=== PATIENT | male | born 1975 | race Caucasian/White ===

== ENCOUNTER 2016-09-04 15:00 | Emergency (ER) | payer BC ==
[2016-09-04 15:17] VITALS: BP 138/94
--- NOTE | 2016-09-04 15:30 | UC ---
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 the pain denies fever but has been sweating and having xchills some discomfort with urintaiotn but no pain, increase in frequecncy over the alst 2 months denies N/V/D/C, last BM today- no blood in stool denies back pain hx of kidney stones told come in and get evaluaiton - History of Current Complaint Chief Complaint: UCAbdominalPain Stated Complaint: ABD PAIN/PRESSURE Time Seen by Provider: 09/04/16 15:22 - Allergies/Home Medications Allergies/Adverse Reactions: Allergies Allergy/AdvReac Type Severity Reaction Status Date / Time No Known Allergies Allergy Verified 10/31/13 08:31 Home Medications: Home Medications NK [No Home Medications Reported] 09/04/16 [History Confirmed 09/04/16] PMH/Surg Hx/FS Hx/Imm Hx Previously Healthy: Yes GI/ History: Kidney Stones - Surgical History Surgical History: None - Family History Known Family History: Negative: Cardiac Disease, Hypertension, Diabetes - Social History Occupation: Employed Full-time Lives: With Family Alcohol Use: Daily Alcohol Amount: 1-2 beer Substance Use Type: None Smoking Status (MU): Heavy Every Day Tobacco Smoker Type: Cigarettes Amount Used/How Often: 1 pack per week and 1 can per day Length of Time of Smoking/Using Tobacco: started at age 18 Have You Smoked in the Last Year: Yes Cessation Counseling: Patient Advised to Stop Review of Systems Constitutional: Chills Skin: Negative Eyes: Negative ENT: Negative Respiratory: Negative Cardiovascular: Negative Gastrointestinal: Abdominal Pain Genitourinary: Dysuria Motor: Negative Neurovascular: Negative Musculoskeletal: Negative Neurological: Negative Psychological: Negative All Other Systems Reviewed And Are Negative: Yes Physical Exam Triage Information Reviewed: Yes Appearance: Well-Nourished, Pain Distress Vital Signs: Initial Vital Signs Temp 97.7 F 09/04/16 15:09 Pulse 78 09/04/16 15:09 Resp 16 09/04/16 15:09 BP 138/94 09/04/16 15:09 Pulse Ox 99 09/04/16 15:09 Vital Signs Reviewed: Yes Eyes: Positive: Conjunctiva Clear ENT: Positive: Pharynx normal, TMs normal Neck: Positive: No Lymphadenopathy Respiratory: Positive: Lungs clear, Normal breath sounds, No respiratory distress, No accessory muscle use Cardiovascular: Positive: RRR, No Murmur, Pulses Normal Abdomen Description: Positive: No Organomegaly. Negative: CVA Tenderness (R), CVA Tenderness (L) Complaint Male Course/Dx - Course Course Of Treatment: exam completed. pt with RLQ pain and rebound tederness, guarding and distention. d/t severity and acute nature of abdominal pain will send to higher level of care for evaluation - Differential Dx/Diagnosis Differential Diagnosis/HQI/PQRI: Urinary Tract Infection, Other - appendicitis, kidney stones Provider Diagnoses: RLQ pain - Physician Notifications Discussed Patient Care With: Silva Ritchie Discussed With Above Provider: 15:46 Instructed by Provider To: Will See In ED Discharge - Discharge Plan Condition: Stable Disposition: TRANS HIGHER LVL OF CARE FAC
== END 2016-09-04 15:49 | disposition left against medical advice (07) ==
LOC: UCCORT 15:00
DX: R10.31 Right lower quadrant pain (principal); Z87.442 Personal history of urinary calculi; F17.210 Nicotine dependence, cigarettes, uncomplicated
CPT/HCPCS: 81003; 99212; G0463

== ENCOUNTER 2016-11-06 08:45 | Emergency (ER) | payer BC ==
[2016-11-06 09:26] VITALS: BP 140/102
--- NOTE | 2016-11-06 10:29 | UC ---
General HPI - HPI Summary HPI Summary: TWO DAYS OF VOMITING (X3) AND DIARRHEA. NO ABDOMINAL PAIN. ABLE TO DRINK FLUIDS. CHILDREN HAD SIMILAR ILLNESS LAST WEEK. NO FEVER. NO RASHES. NO HEADACHE. NO SORE THROAT. - History of Current Complaint Chief Complaint: UCGI Stated Complaint: VOMITING Time Seen by Provider: 11/06/16 09:59 Hx Obtained From: Patient Onset/Duration: Gradual Onset, Lasting Days, Still Present Onset Severity: Moderate Current Severity: Mild Associated Signs & Symptoms: Positive: Diarrhea, Nausea, Vomiting. Negative: Abdominal Pain, Back Pain, Cough, Chest Pain, Diaphoresis, Edema, Fever, Headache, Palpitations, Recent Medication Changes, Syncope, SOB, Weakness - Allergy/Home Medications Allergies/Adverse Reactions: Allergies Allergy/AdvReac Type Severity Reaction Status Date / Time No Known Allergies Allergy Verified 11/06/16 09:26 Home Medications: Home Medications Peptoo Bismol 1 dose PO ONCE PRN 11/06/16 [History Confirmed 11/06/16] Protein Shake 1 unit PO DAILY 11/06/16 [History Confirmed 11/06/16] PMH/Surg Hx/FS Hx/Imm Hx Previously Healthy: Yes - Surgical History Surgical History: None - Family History Known Family History: Negative: Cardiac Disease, Hypertension, Diabetes - Social History Occupation: Employed Full-time Lives: With Family Alcohol Use: Occasionally Alcohol Amount: 1-2 beer Substance Use Type: None Smoking Status (MU): Former Smoker Type: Cigarettes Amount Used/How Often: 1 pack per week and 1 can per day Length of Time of Smoking/Using Tobacco: started at age 18 Have You Smoked in the Last Year: Yes When Did the Patient Quit Smoking/Using Tobacco: 3 weeks Review of Systems Constitutional: Negative Skin: Negative Eyes: Negative ENT: Negative Respiratory: Negative Cardiovascular: Negative Gastrointestinal: Vomiting, Diarrhea Genitourinary: Negative Motor: Negative Neurovascular: Negative Musculoskeletal: Negative Neurological: Negative Psychological: Negative All Other Systems Reviewed And Are Negative: Yes Physical Exam Triage Information Reviewed: Yes Appearance: No Pain Distress, Well-Nourished, Ill-Appearing - MILDLY Vital Signs: Initial Vital Signs Temp 98.3 F 11/06/16 09:18 Pulse 72 11/06/16 09:18 Resp 18 11/06/16 09:18 BP 140/102 11/06/16 09:18 Vital Signs Reviewed: Yes Eye Exam: Normal ENT Exam: Normal ENT: Positive: Normal ENT inspection, Hearing grossly normal, Pharynx normal, TMs normal Dental Exam: Normal Neck exam: Normal Neck: Positive: Supple, Nontender, No Lymphadenopathy Respiratory Exam: Normal Respiratory: Positive: Chest non-tender, Lungs clear, Normal breath sounds, No respiratory distress, No accessory muscle use Cardiovascular Exam: Normal Cardiovascular: Positive: RRR, No Murmur, Pulses Normal, Brisk Capillary Refill Abdominal Exam: Normal Abdomen Description: Positive: Nontender, No Organomegaly Musculoskeletal Exam: Normal Neurological Exam: Normal Psychological Exam: Normal Psychological: Positive: Normal Response To Family Skin Exam: Normal Course/Dx - Differential Dx - Multi-Symptom Differential Diagnoses: Metabolic Abnormality, Urinary Tract Infection Provider Diagnoses: GASTROENTERITIS Discharge - Discharge Plan Condition: Stable Disposition: HOME Prescriptions: Ondansetron ODT TAB* [Zofran 4 MG Odt TAB*] 4 mg PO Q8H PRN #9 tab.odt PRN Reason: Vomiting Patient Education Materials: Gastroenteritis (ED), Acute Nausea and Vomiting ( ED) Forms: *Work Release Referrals: [facility] [Outside] No Primary Care Phys,NOPCP [Primary Care Provider] -
== END 2016-11-06 10:20 | disposition home or self-care (01) ==
LOC: UCCORT 08:45
DX: K52.9 Noninfective gastroenteritis and colitis, unspecified (principal); Z87.891 Personal history of nicotine dependence
CPT/HCPCS: 99212; G0463

== ENCOUNTER 2016-12-12 08:38 | Emergency (ER) | payer BC ==
[2016-12-12 08:52] VITALS: BP 149/97
--- NOTE | 2016-12-12 09:23 | ED ---
Upper Extremity Pain - HPI Summary HPI Summary: 41 yr old male with the complaint of left hand pain. The patient has 1/10 pain in left hand, made worse with gripping things. the patient states he ended up getting stung by something three days ago when working in the [employer] [place]. He had gloves on. He denies fever or chills. He has some redness, and tenderness over the area. He denies any direct trauma to the hand otherwise. - History of Current Complaint Chief Complaint: UCSkin Stated Complaint: LEFT HAND COMPLAINT Time Seen by Provider: 12/12/16 08:48 - Allergies/Home Medications Allergies/Adverse Reactions: Allergies Allergy/AdvReac Type Severity Reaction Status Date / Time No Known Allergies Allergy Verified 12/12/16 08:46 Home Medications: Home Medications Diphenhydramine HCl [Benadryl Allergy Child 12.5 MG/5 ML LIQ] 12.5 mg PO TID PRN 12/12/16 [History Confirmed 12/12/16] PMH/Surg Hx/FS Hx/Imm Hx Previously Healthy: Yes Endocrine/Hematology History: Denies: Hx Diabetes Respiratory History: Denies: Hx Asthma - Surgical History Hx Anesthesia Reactions: No - Immunization History Immunizations Up to Date: Yes Infectious Disease History: No Infectious Disease History: Denies: Traveled Outside the [place] in Last 30 Days - Family History Known Family History: Positive: Other - cancer liver; his father last week. Negative: Cardiac Disease, Hypertension, Diabetes - Social History Alcohol Use: Occasionally Alcohol Amount: 1-2 beer Substance Use Type: Reports: None Smoking Status (MU): Former Smoker Type: Cigarettes Amount Used/How Often: 1 pack per week and 1 can per day Length of Time of Smoking/Using Tobacco: started at age 18 Have You Smoked in the Last Year: Yes Review of Systems Constitutional: Negative Positive: Other - hand pain, redness All Other Systems Reviewed And Are Negative: Yes Physical Exam Triage Information Reviewed: Yes Vital Signs On Initial Exam: Initial Vitals Temp Pulse Resp BP Pulse Ox 98.6 F 73 16 149/97 98 12/12/16 08:48 12/12/16 08:48 12/12/16 08:48 12/12/16 08:48 12/12/16 08:48 Vital Signs Reviewed: Yes Appearance: Positive: Well-Appearing, No Pain Distress Skin: Positive: Skin Color Reflects Adequate Perfusion Head/Face: Positive: Normal Head/Face Inspection Eyes: Positive: EOMI ENT: Positive: Normal ENT inspection Respiratory/Lung Sounds: Positive: Other - nomral effort Cardiovascular: Positive: Pulses are Symmetrical in both Upper and Lower Extremities - upper onlly Musculoskeletal: Positive: Other - left hand with redness and very minimal tenderness and soft tissue swelling to the dorsum in between the 4th and 5 th metacarpals. No fluctuance. no FB palpated. he opens and closes the left hand well. Neurological: Positive: Sensory/Motor Intact, Alert, Oriented to Person Place, Time, CN Intact II-III, Normal Gait Psychiatric: Positive: Normal - Juan Coma Scale Best Eye Response: 4 - Spontaneous Best Motor Response: 6 - Obeys Commands Best Verbal Response: 5 - Oriented Diagnostics - Vital Signs Vital Signs Temp Pulse Resp BP Pulse Ox 12/12/16 08:48 98.6 F 73 16 149/97 98 - Laboratory Lab Statement: Any lab studies that have been ordered have been reviewed, and results considered in the medical decision making process. Course/Dx - Course Course Of Treatment: 41 yr old with bug bit to hand by history with some cellulitis. Rx keflex. FU PMD - Diagnoses Provider Diagnoses: Cellulitis Discharge - Discharge Plan Condition: Good Disposition: HOME Prescriptions: Cephalexin CAP* [Keflex CAP*] 500 mg PO QID #40 cap Ibuprofen TAB* [Motrin TAB* 600 MG] 600 mg PO Q6H PRN #20 tab PRN Reason: Pain Patient Education Materials: Cellulitis (ED) Forms: *Work Release Referrals: Kevin Baker MD [Medical Doctor] - 4 Days No Primary Care Phys,NOPCP [Primary Care Provider] -
== END 2016-12-12 09:24 | disposition home or self-care (01) ==
LOC: UCCORT 08:38
DX: L03.114 Cellulitis of left upper limb (principal); Z87.891 Personal history of nicotine dependence
CPT/HCPCS: 99212; G0463

== ENCOUNTER 2017-03-20 08:26 | Emergency (ER) | payer BC ==
[2017-03-20 08:46] VITALS: BP 139/88
--- NOTE | 2017-03-20 08:50 | UC ---
Abdominal Pain Male HPI - HPI Summary HPI Summary: Pt vomited 5-6 times since 1am Pt states went to work and felt he should try to eat. Pt had a piece of breakfast pizza and coffee which he vomited. Pt here for work note as he was sent home. Pt denies fevers, chills, no cp, sob, abd pain. Pt denies diarrhea. Pt states feels thirsty. + urine x 1 today. Pt states his daughter was sick with "stomach bug" x 36 hours this week. She also developed diarrhea. Pt's medications reviewed this visit - History of Current Complaint Chief Complaint: UCGI Stated Complaint: VOMITING Time Seen by Provider: 03/20/17 08:37 Hx Obtained From: Patient Onset/Duration: Sudden Onset Timing: Constant Severity Initially: Mild Severity Currently: Mild Radiates: No Character: Other - nausea Aggravating Factor(s): Food Alleviating Factor(s): Nothing Associated Signs And Symptoms: Positive: Vomiting - Allergies/Home Medications Allergies/Adverse Reactions: Allergies Allergy/AdvReac Type Severity Reaction Status Date / Time No Known Allergies Allergy Verified 03/20/17 08:46 Home Medications: Home Medications NK [No Home Medications Reported] 03/20/17 [History Confirmed 03/20/17] PMH/Surg Hx/FS Hx/Imm Hx Previously Healthy: Yes - Surgical History Surgical History: None - Family History Known Family History: Positive: Other - cancer liver; his father last week. Negative: Cardiac Disease, Hypertension, Diabetes - Social History Occupation: Employed Full-time Lives: With Family Alcohol Use: Occasionally Alcohol Amount: 1-2 beer Substance Use Type: None Type: Smokeless Tobacco Amount Used/How Often: 1 can per day Length of Time of Smoking/Using Tobacco: started at age 18 Have You Smoked in the Last Year: Yes When Did the Patient Quit Smoking/Using Tobacco: couple months Review of Systems Constitutional: Negative Gastrointestinal: Vomiting, Nausea All Other Systems Reviewed And Are Negative: Yes Physical Exam Triage Information Reviewed: Yes Appearance: Well-Nourished, Other: - tired appearing Vital Signs: Initial Vital Signs Temp 98.1 F 03/20/17 08:40 Pulse 78 03/20/17 08:40 Resp 16 03/20/17 08:40 BP 139/88 03/20/17 08:40 Pulse Ox 99 03/20/17 08:40 Eye Exam: Normal Eyes: Positive: Conjunctiva Clear ENT Exam: Normal ENT: Positive: Hearing grossly normal, Other - lips dry mm pasty Dental Exam: Normal Neck exam: Normal Neck: Positive: Supple, Nontender, No Lymphadenopathy Respiratory Exam: Normal Respiratory: Positive: Chest non-tender, Lungs clear, Normal breath sounds, No respiratory distress, No accessory muscle use Cardiovascular Exam: Normal Cardiovascular: Positive: RRR, No Murmur Abdominal Exam: Normal Abdomen Description: Positive: Nontender, No Organomegaly, Soft Bowel Sounds: Positive: Present Musculoskeletal Exam: Normal Neurological Exam: Normal Neurological: Positive: Alert Psychological Exam: Normal Psychological: Positive: Normal Response To Family Skin Exam: Normal Abd Pain Male Course/Dx - Course Course Of Treatment: Pt presents with 8 hours n/v. Pt left work and requesting note. Pt with sick contact with same. stable VSS. Pt with non concerning exam except mm pasty. Pt declined zofran. Wants to go home to bed. work note. clears to bland. return precautions - Differential Dx/Clinical Impression Provider Diagnoses: vomiting. mild dehydration Discharge - Discharge Plan Condition: Stable Disposition: HOME Patient Education Materials: Dehydration (ED), Acute Nausea and Vomiting (ED) Forms: *Gen. Provider Communication, *Work Release Referrals: No Primary Care Phys,NOPCP [Primary Care Provider] - Additional Instructions: - Stay well hydrate. Drink plenty of non alcoholic, non caffeinated beverages. Small, frequent sips are best - For the first 6 hours, eat and drink clears (water, blanche jose maria, soup broth, jello, popsicles, Gatorade). If you tolerate this okay, add bland foods such as dry toast, scrambled eggs, crackers. Wait until you are feeling better for 24 hours before eating spicy food, acidic food, tomato based food, fried food. - Get plenty of restful sleep - These infections are spread by oral secretions. Do not share eating or drinking utensils. Frequent hand washing is important. Clean items that may get your secretions on them such as cell phones, ipads, computer mouse, television remotes - contact your doctor or return with questions or concerns - If you are unable to stay hydrated, develop fevers, abdominal pain, chest pain or any other concerns - contact your doctor, go to the emergency department or return
== END 2017-03-20 09:03 | disposition home or self-care (01) ==
LOC: UCCORT 08:26
DX: R11.11 Vomiting without nausea (principal); E86.0 Dehydration; Z72.89 Other problems related to lifestyle; Z72.0 Tobacco use
CPT/HCPCS: 99211; G0463

== ENCOUNTER 2017-09-08 14:12 | Emergency (ER) | payer SELFPAY ==
[2017-09-08 14:31] VITALS: BP 148/88
[2017-09-08] MEDS ORDERED: Ondansetron TAB* 4 MG PO ONE (14:39)
--- NOTE | 2017-09-08 14:40 | UC ---
Abdominal Pain Male HPI - HPI Summary HPI Summary: 41 yo male with the onset of N/V x3/diarrhea x 6 since 3 AM daughter had similar symptoms a few days ago He was recently seen in [facility] ER for heart burn ? 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 - History of Current Complaint Chief Complaint: UCGI Stated Complaint: NAUSEA, VOMITING, DIARRHEA Time Seen by Provider: 09/08/17 14:23 Hx Obtained From: Patient Onset/Duration: Gradual Onset, Lasting Hours Severity Initially: Moderate Severity Currently: Moderate Pain Intensity: 0 Pain Scale Used: 0-10 Numeric Location: Diffuse, Discrete At: RLQ, Other - has intermittent crampy abd pain/ no pain at present Character: Cramping Aggravating Factor(s): Nothing Alleviating Factor(s): Spontaneous Resolution, Nothing Associated Signs And Symptoms: Positive: Decreased Appetite, Nausea, Vomiting, Diarrhea - Allergies/Home Medications Allergies/Adverse Reactions: Allergies Allergy/AdvReac Type Severity Reaction Status Date / Time No Known Allergies Allergy Verified 03/20/17 08:46 Home Medications: Home Medications Indomethacin 25 mg PO DAILY 09/08/17 [History Confirmed 09/08/17] Pantoprazole TAB (NF) [Protonix TAB (NF)] 20 mg PO DAILY 09/08/17 [History Confirmed 09/08/17] PMH/Surg Hx/FS Hx/Imm Hx Previously Healthy: Yes - Surgical History Surgical History: None - Family History Known Family History: Positive: Other - cancer liver; his father last week. Negative: Cardiac Disease, Hypertension, Diabetes - Social History Alcohol Use: Occasionally Alcohol Amount: 1-2 beer Substance Use Type: None Smoking Status (MU): Former Smoker Type: Smokeless Tobacco Amount Used/How Often: 1 can per day Length of Time of Smoking/Using Tobacco: started at age 18 Have You Smoked in the Last Year: Yes When Did the Patient Quit Smoking/Using Tobacco: couple months Review of Systems Constitutional: Negative Skin: Negative Eyes: Negative ENT: Negative Respiratory: Negative Cardiovascular: Negative Gastrointestinal: Abdominal Pain, Vomiting, Diarrhea, Nausea Genitourinary: Negative Motor: Negative Neurovascular: Negative Musculoskeletal: Negative Neurological: Negative Psychological: Negative Is Patient Immunocompromised?: No All Other Systems Reviewed And Are Negative: Yes Physical Exam Triage Information Reviewed: Yes Appearance: Well-Appearing, No Pain Distress, Well-Nourished Vital Signs: Initial Vital Signs Temp 98.1 F 09/08/17 14:23 Pulse 75 09/08/17 14:23 Resp 16 09/08/17 14:23 BP 148/88 09/08/17 14:23 Pulse Ox 99 09/08/17 14:23 Vital Signs Reviewed: Yes Eyes: Positive: Conjunctiva Clear ENT: Positive: Hearing grossly normal, Pharynx normal, Uvula midline. Negative : Nasal congestion, Nasal drainage, Tonsillar swelling, Tonsillar exudate, Trismus, Muffled voice, Hoarse voice, Sinus tenderness Dental Exam: Normal Neck: Positive: Supple, Nontender, No Lymphadenopathy Respiratory: Positive: Lungs clear, Normal breath sounds, No respiratory distress Cardiovascular: Positive: RRR, No Murmur, Other: - no rubs. Negative: Tachycardia, Bradycardia Abdomen Description: Positive: Nontender, No Organomegaly, Soft. Negative: CVA Tenderness (R), CVA Tenderness (L) Bowel Sounds: Positive: Present Musculoskeletal: Positive: ROM Intact, No Edema Neurological Exam: Normal Neurological: Positive: Alert Psychological Exam: Normal Skin Exam: Normal Abd Pain Male Course/Dx - Differential Dx/Clinical Impression Provider Diagnoses: acute nausea/vomiting/diarrhea. suspect viral gastroenteritis Discharge - Sign-Out/Discharge Documenting (check all that apply): Discharge/Admit/Transfer - Discharge Plan Condition: Stable Disposition: HOME Prescriptions: Ondansetron TAB* [Zofran Tab*] 4 mg PO Q6H PRN #10 tab PRN Reason: Nausea Patient Education Materials: Gastroenteritis (ED) Referrals: No Primary Care Phys,NOPCP [Primary Care Provider] - Additional Instructions: recheck in 48 hours if not better TO ER FOR NEW OR WORSENING SYMPTOMS you should not take your indomethacin until able to tolerate food - Billing Disposition and Condition Condition: STABLE Disposition: Home
[2017-09-08] MEDS ORDERED: Ondansetron ODT TAB* 4 MG ONE (14:44)
[2017-09-08] MEDS ORDERED: Ondansetron ODT TAB* 4 MG PO ONE (14:45)
== END 2017-09-08 14:51 | disposition home or self-care (01) ==
LOC: UCCORT 14:12
DX: R11.2 Nausea with vomiting, unspecified (principal); R19.7 Diarrhea, unspecified; Z87.891 Personal history of nicotine dependence
CPT/HCPCS: 99212; A9270-GY; G0463

== ENCOUNTER 2018-01-28 09:33 | Emergency (ER) | payer SELFPAY ==
[2018-01-28] MEDS ORDERED: Ondansetron ODT TAB* 4 MG PO ONE (10:30)
[2018-01-28 11:12] VITALS: BP 158/108
--- NOTE | 2018-01-28 11:16 | UC ---
FLU HPI - HPI Summary HPI Summary: Pt presents with c/o sudden onset of nausea, vomiting, generalized malaise, chills, night sweats last night coughing, chest , congestion. Has not gotten flu vaccine yet. - History of Current Complaint Chief Complaint: UCGeneralIllness Stated Complaint: VOMITING,STOMACH ACHE Time Seen by Provider: 01/28/18 10:11 Hx Obtained From: Patient Onset/Duration: Sudden Onset, Lasting Days, Still Present Severity Currently: Moderate Severity Initially: Moderate Pain Intensity: 5 Associated Signs & Symptoms: Positive: Myalgia, Cough, Nasal Congestion, Vomiting Related Hx: Possible Flu/Infectious Exposure - Risk Factors Influenza Risk Factors: Negative - Allergy/Home Medications Allergies/Adverse Reactions: Allergies Allergy/AdvReac Type Severity Reaction Status Date / Time latex Allergy Unknown RASH,SWELLI Verified 01/28/18 09:59 NG Home Medications: Home Medications Naproxen Sodium [Aleve] 880 mg PO PRN 01/28/18 [History] Rx Bp Med, Unknown Name 01/28/18 [History] PMH/Surg Hx/FS Hx/Imm Hx Previously Healthy: Yes - Surgical History Surgical History: None - Family History Known Family History: Positive: Other - cancer liver; his father last week. Negative: Cardiac Disease, Hypertension, Diabetes - Social History Occupation: Employed Full-time Lives: With Family Alcohol Use: Occasionally Alcohol Amount: 1-2 beer Substance Use Type: None Smoking Status (MU): Former Smoker Type: Smokeless Tobacco Amount Used/How Often: 1 can per day Length of Time of Smoking/Using Tobacco: started at age 18 Have You Smoked in the Last Year: Yes When Did the Patient Quit Smoking/Using Tobacco: couple months - Immunization History Vaccination Up to Date: No Review of Systems All Other Systems Reviewed And Are Negative: Yes Constitutional: Positive: Chills, Fatigue Skin: Positive: Negative Eyes: Positive: Negative ENT: Positive: Sore Throat, Sinus Congestion Respiratory: Positive: Cough Cardiovascular: Positive: Negative Gastrointestinal: Positive: Vomiting, Nausea Genitourinary: Positive: Negative Motor: Positive: Negative Neurovascular: Positive: Negative Musculoskeletal: Positive: Myalgia Neurological: Positive: Headache Psychological: Positive: Negative Is Patient Immunocompromised?: No Physical Exam Triage Information Reviewed: Yes Appearance: Ill-Appearing Vital Signs: Initial Vital Signs Temp 98.2 F 01/28/18 10:01 Pulse 101 01/28/18 10:01 Resp 20 01/28/18 10:01 BP 137/105 01/28/18 10:01 Pulse Ox 97 01/28/18 10:01 Vital Signs Reviewed: Yes Eye Exam: Normal ENT: Positive: Nasal congestion Dental Exam: Normal Neck exam: Normal Respiratory Exam: Normal Respiratory: Positive: Normal breath sounds Cardiovascular Exam: Normal Abdominal Exam: Other - generalized tenderness Musculoskeletal Exam: Normal Neurological Exam: Normal Psychological Exam: Normal Skin Exam: Normal Diagnostics - Laboratory Diagnostic Studies Completed/Ordered: rapid flu: negative Flu Course/Dx - Differential Dx/Diagnosis Differential Diagnosis/HQI/PQRI: Influenza, Upper Respiratory Infection, Other - viral syndrome Provider Diagnoses: viral syndrome. acute nausea and vomiting Discharge - Sign-Out/Discharge Documenting (check all that apply): Patient Departure All imaging exams completed and their final reports reviewed: No Studies - Discharge Plan Condition: Stable Disposition: HOME Prescriptions: Ondansetron HCl [Zofran] 8 mg PO Q8H PRN #15 tablet PRN Reason: Nausea Patient Education Materials: Acute Nausea and Vomiting (ED), Viral Syndrome (ED ) Forms: *Work Release Referrals: [facility] [Outside] - If Needed No Primary Care Phys,NOPCP [Primary Care Provider] - - Billing Disposition and Condition Condition: STABLE Disposition: Home
== END 2018-01-28 11:12 | disposition home or self-care (01) ==
LOC: UCCORT 09:33
DX: B34.9 Viral infection, unspecified (principal); R11.2 Nausea with vomiting, unspecified; Z91.040 Latex allergy status; Z87.891 Personal history of nicotine dependence
CPT/HCPCS: 99212; A9270-GY; G0463